=== PATIENT | female | born 1980 | race Caucasian/White ===

== ENCOUNTER 2019-10-01 06:11 | Day surgery (SDC) | payer OTHER ==
[~2019-10-01] VITALS: Ht 160 cm; Wt 54.4 kg
[2019-10-01] MEDS ORDERED: PHENYLEPHRINE 1% 15 ML BTL NS ONE (07:37)
[2019-10-01] MEDS ORDERED: LIDOCAINE/EPI MPF 1%1:200000 30 ML VIAL INJ ONE ×2 (07:37→07:39)
[2019-10-01] MEDS ORDERED: NEOMYCIN/POLYMYXIN/BACITRACIN OIN 15 GM TUBE TP ONE (07:39)
[2019-10-01] MEDS ORDERED: SEVOFLURANE 250 ML BTL INH ONE (07:55)
[2019-10-01] MEDS ORDERED: PROPOFOL 200 MG/20 ML VIAL IV ONE (07:55)
[2019-10-01] MEDS ORDERED: DEXAMETHASONE 10 MG/ML VIAL ONE (07:55)
[2019-10-01] MEDS ORDERED: SUCCINYLCHOLINE CHLORIDE 200 MG/10 ML VIAL IVP ONE (07:55)
[2019-10-01] MEDS ORDERED: ONDANSETRON 4 MG/2 ML VIAL ONE (07:55)
[2019-10-01] MEDS ORDERED: MIDAZOLAM 2 MG/2 ML VIAL ONE (07:58)
[2019-10-01] MEDS ORDERED: fentaNYL 0.05 MG/ML VIAL ONE (07:58)
[2019-10-01] MEDS ORDERED: MEPERIDINE 50 MG/ML SYR ONE (07:58)
--- NOTE | 2019-10-01 08:10 | NUR ---
COOL AEROSOL TO MASK SET-UP TESTED FUNCTIONING WELL
[2019-10-01] MEDS ORDERED: LACTATED RINGERS 1,000 ML IV SCH (08:36)
[2019-10-01] MEDS ORDERED: ONDANSETRON 4 MG/2 ML VIAL IVP PRN (08:40)
[2019-10-01] MEDS ORDERED: HYDROmorphone 1 MG/ML AMP IVP PRN (08:40)
[2019-10-01] MEDS ORDERED: diphenhydrAMINE 50 MG/ML VIAL IVP PRN (08:40)
[2019-10-01] MEDS ORDERED: MEPERIDINE 25 MG/ML SYR IVP PRN (08:40)
[2019-10-01] MEDS ORDERED: DEXT 5% / NACL 0.45% 1,000 ML IV SCH (09:10)
[2019-10-01] MEDS ORDERED: guaiFENesin DM 200/20 MG-10 ML 10 ML UDC PO PRN (09:10)
[2019-10-01] MEDS ORDERED: ACETAMIN/CODEINE 120/12MG-5ML 5 ML UDC PO PRN (09:10)
[2019-10-01] MEDS ORDERED: PROMETHAZINE 25 MG/ML VIAL IVP PRN (09:10)
[2019-10-01] MEDS ORDERED: MEPERIDINE 50 MG/ML SYR IVP PRN (09:10)
[2019-10-01] MEDS ORDERED: HYDROmorphone PFS 2 MG/ML SYR ONE (09:23)
== END 2019-10-01 11:35 | disposition home or self-care (01) ==
LOC: MMU 06:11 → MDS 06:11
PROVIDERS: ATTEND Otolaryngology
DX: J34.2 Deviated nasal septum (principal); J34.3 Hypertrophy of nasal turbinates; Z90.89 Acquired absence of other organs
CPT/HCPCS: 30140; 30520; J0330; J1100; J1170; J2001; J2250; J2405; J2704; J3010; J7120; J2175